=== PATIENT | male | born 1980 | race African-American/Black ===

== ENCOUNTER 2016-07-25 21:14 | Emergency (ER) | payer MEDICAID ==
[~2016-07-25] VITALS: Ht 177.8 cm; Wt 77.0 kg
[2016-07-26] MEDS ORDERED: KETOROLAC 60MG/2ML VIAL IM ONE (00:15)
[2016-07-26] MEDS ORDERED: ONDANSETRON 4MG ODT PO ONE (00:15)
[2016-07-26 01:07] LABS: CLARITY URINE CLEAR (CLEAR); COLOR URINE YELLOW (YELLOW); GLUCOSE URINE NEGATIVE (NEGATIVE); KETONES URINE NEGATIVE (NEGATIVE); LEUKOCYTE ESTERASE URINE NEGATIVE (NEGATIVE); NITRITE URINE NEGATIVE (NEGATIVE); OCCULT BLOOD URINE NEGATIVE (NEGATIVE); PH URINE 5.5 (4.5-8.0); PROTEIN URINE NEGATIVE (NEGATIVE); SPECIFIC GRAVITY URINE 1.023 (1.005-1.030); UROBILINOGEN URINE 0.2 E.U./dL (0.2-1.0)
[2016-07-26] MEDS ORDERED: ONDANSETRON HCL 4MG TABLET PO ONE (01:30)
[2016-07-26 02:12] LABS: BASOPHILS % 2.6 % (0.0-2.0); EOSINOPHILS % 0.6 % (0.0-5.0); HEMATOCRIT. 38.1 % (42.0-52.0); HEMOGLOBIN. 12.7 g/dL (14.0-18.0); LYMPHOCYTES % 22.5 % (20.0-50.0); MEAN CORPUSCULAR HEMOGLOBIN 31.4 pg (28.0-32.0); MEAN CORPUSCULAR VOLUME 93.8 fL (80.0-94.0); MONOCYTES % 5.5 % (2.0-8.0); NEUTROPHILS % 68.8 % (40.0-76.0); PLATELET 142 x1000/uL (130-400); RED BLOOD CELL COUNT 4.06 mill/uL (4.7-6.1)
[2016-07-26 02:28] LABS: CARBON DIOXIDE 33 mEq/L (21-32); CHLORIDE 103 mEq/L (98-107); ETHANOL BLOOD < 10 mg/dL
[2016-07-26 02:45] VITALS: BP 139/81
[2016-07-26 10:16] LABS: *AMPHETAMINES SCREEN URINE NEGATIVE (NEGATIVE); *BARBITURATES SCREEN URINE NEGATIVE (NEGATIVE); *BENZODIAZEPINES SCREEN URINE NEGATIVE (NEGATIVE); *COCAINE SCREEN URINE NEGATIVE (NEGATIVE); CANNABINOID URINE SCREEN NEGATIVE (NEGATIVE); METHADONE URINE SCREEN NEGATIVE (NEGATIVE); OPIATES URINE SCREEN NEGATIVE (NEGATIVE); PHENCYCLIDINE URINE SCREEN NEGATIVE (NEGATIVE)
== END 2016-07-26 03:58 | disposition home or self-care (01) ==
LOC: ER 21:24
DX: R10.13 Epigastric pain (principal); Z87.11 Personal history of peptic ulcer disease; Z88.1 Allergy status to other antibiotic agents
CPT/HCPCS: 36415; 76770; 80053; 80305; 81003; 83690; 85025; 96372; 99285; G0482; J1885; Q0162

== ENCOUNTER 2017-07-26 12:36 | Emergency (ER) | payer MEDICAID ==
[~2017-07-26] VITALS: Ht 165.1 cm; Wt 73.0 kg
[2017-07-26] MEDS ORDERED: KETOROLAC 30MG/ML VIAL IV STA (15:28)
[2017-07-26] MEDS ORDERED: SODIUM CHLORIDE 0.9% 1,000 ML IV ONE (15:28)
[2017-07-26] MEDS ORDERED: ONDANSETRON HCL 4MG/2ML VIAL IV STA (15:28)
[2017-07-26 16:01] LABS: BASOPHILS % 1.1 % (0.0-2.0); EOSINOPHILS % 0.1 % (0.0-5.0); HEMATOCRIT. 41.6 % (42.0-52.0); HEMOGLOBIN. 14.2 g/dL (14.0-18.0); LYMPHOCYTES % 15.7 % (20.0-50.0); MEAN CORPUSCULAR VOLUME 93.4 fL (80.0-94.0); MEAN PLATELET VOLUME 8.4 fl (7.4-10.4); MONOCYTES % 6.2 % (2.0-8.0); NEUTROPHILS % 76.9 % (40.0-76.0); PLATELET 142 x1000/uL (130-400); RED BLOOD CELL COUNT 4.45 mill/uL (4.7-6.1); RED CELL DISTRIBUTION WIDTH 14.1 % (11.6-14.6)
[2017-07-26 16:05] LABS: CHLORIDE 103 mEq/L (98-107)
[2017-07-26 16:10] LABS: ETHANOL BLOOD < 10 mg/dL
[2017-07-26] MEDS ORDERED: LORAZEPAM 2MG/ML CPJ IV ONE (18:15)
[2017-07-26] MEDS ORDERED: ONDANSETRON HCL 4MG/2ML VIAL IV ONE (18:15)
[2017-07-26] MEDS ORDERED: CHLORDIAZEPOXIDE 25MG CAPSULE PO ONE (18:45)
[2017-07-26 21:00] VITALS: BP 136/62
== END 2017-07-26 21:35 | disposition home or self-care (01) ==
LOC: ER 13:32
DX: R10.32 Left lower quadrant pain (principal); E11.9 Type 2 diabetes mellitus without complications; I10 Essential (primary) hypertension; F12.10 Cannabis abuse, uncomplicated; F17.210 Nicotine dependence, cigarettes, uncomplicated
CPT/HCPCS: 36415; 74176; 80053; 83690; 85025; 96361; 96374; 96375; 96376; 99285; G0482; J1885; J2060; J2405; J7030; Z7610

== ENCOUNTER 2017-08-23 19:11 | Emergency (ER) | payer MEDICAID ==
[~2017-08-23] VITALS: Ht 177.8 cm; Wt 73.0 kg
[2017-08-23] MEDS ORDERED: VISCOUS LIDOCAINE 2% 15 ML UDC MM ONE (22:45)
[2017-08-23] MEDS ORDERED: FAMOTIDINE 20MG TABLET PO ONE (22:45)
[2017-08-23 22:55] LABS: BASOPHILS % 0.7 % (0.0-2.0); EOSINOPHILS % 0.5 % (0.0-5.0); HEMATOCRIT. 37.7 % (42.0-52.0); HEMOGLOBIN. 12.7 g/dL (14.0-18.0); LYMPHOCYTES % 18.4 % (20.0-50.0); MEAN CORPUSCULAR HEMOGLOBIN 31.9 pg (28.0-32.0); MEAN CORPUSCULAR VOLUME 94.8 fL (80.0-94.0); MEAN PLATELET VOLUME 8.1 fl (7.4-10.4); MONOCYTES % 11.2 % (2.0-8.0); NEUTROPHILS % 69.2 % (40.0-76.0); PLATELET 167 x1000/uL (130-400); RED BLOOD CELL COUNT 3.98 mill/uL (4.7-6.1); RED CELL DISTRIBUTION WIDTH 14.2 % (11.6-14.6)
[2017-08-24 02:16] VITALS: BP 145/85
== END 2017-08-24 02:20 | disposition home or self-care (01) ==
LOC: ER 19:42
DX: K29.20 Alcoholic gastritis without bleeding (principal); F10.20 Alcohol dependence, uncomplicated; E11.9 Type 2 diabetes mellitus without complications; I10 Essential (primary) hypertension; F17.200 Nicotine dependence, unspecified, uncomplicated; Z88.1 Allergy status to other antibiotic agents; Y90.9 Presence of alcohol in blood, level not specified
CPT/HCPCS: 36415; 83690; 85025; 93005; 99285

== ENCOUNTER 2018-01-25 12:25 | Emergency (ER) | payer MEDICAID ==
[~2018-01-25] VITALS: Ht 170.2 cm; Wt 69.0 kg
[2018-01-25] MEDS ORDERED: ACETAMINOPHEN 325MG TABLET PO STA (14:56)
[2018-01-25] MEDS ORDERED: ONDANSETRON HCL 4MG/2ML INJ IV STA (14:56)
[2018-01-25] MEDS ORDERED: MAGNESIUM/ALUMINUM HYDROXIDE/SIMETHICONE 30ML UDC PO STA (14:56)
[2018-01-25 14:59] LABS: BASOPHILS % 0.6 % (0.0-2.0); EOSINOPHILS % 0.1 % (0.0-5.0); HEMATOCRIT. 42.1 % (42.0-52.0); HEMOGLOBIN. 13.9 g/dL (14.0-18.0); LYMPHOCYTES % 11.7 % (20.0-50.0); MEAN CORPUSCULAR HEMOGLOBIN 31.8 pg (28.0-32.0); MEAN CORPUSCULAR VOLUME 96.3 fL (80.0-94.0); MEAN PLATELET VOLUME 8.6 fl (7.4-10.4); MONOCYTES % 2.6 % (2.0-8.0); PLATELET 196 x1000/uL (130-400); RED BLOOD CELL COUNT 4.37 mill/uL (4.7-6.1); RED CELL DISTRIBUTION WIDTH 13.6 % (11.6-14.6)
[2018-01-25 15:06] LABS: CHLORIDE 102 mEq/L (98-107)
[2018-01-25 15:59] VITALS: BP 122/69
== END 2018-01-25 16:12 | disposition home or self-care (01) ==
LOC: ER 12:25
DX: R10.9 Unspecified abdominal pain (principal); R11.2 Nausea with vomiting, unspecified; I10 Essential (primary) hypertension; E11.9 Type 2 diabetes mellitus without complications; F12.10 Cannabis abuse, uncomplicated; Z88.1 Allergy status to other antibiotic agents
CPT/HCPCS: 36415; 80053; 83690; 85025; 96374; 99283; J2405

== ENCOUNTER 2018-02-07 19:45 | Emergency (ER) | payer MEDICAID ==
[~2018-02-07] VITALS: Ht 180.3 cm; Wt 82.0 kg
[2018-02-07] MEDS ORDERED: SODIUM CHLORIDE 0.9% 1,000 ML IV ONE (20:27)
[2018-02-07] MEDS ORDERED: ONDANSETRON HCL 4MG/2ML INJ IV STA (20:27)
[2018-02-07 21:27] LABS: CHLORIDE 109 mEq/L (98-107); CLARITY URINE CLEAR (CLEAR); COLOR URINE YELLOW (YELLOW); KETONES URINE NEGATIVE (NEGATIVE); LEUKOCYTE ESTERASE URINE NEGATIVE (NEGATIVE); NITRITE URINE NEGATIVE (NEGATIVE); OCCULT BLOOD URINE NEGATIVE (NEGATIVE); PROTEIN URINE NEGATIVE (NEGATIVE); SPECIFIC GRAVITY URINE 1.007 (1.005-1.030); UROBILINOGEN URINE 0.2 E.U./dL (0.2-1.0)
[2018-02-07 21:28] LABS: BASOPHILS % 0.8 % (0.0-2.0); EOSINOPHILS % 2.6 % (0.0-5.0); HEMATOCRIT. 40.6 % (42.0-52.0); HEMOGLOBIN. 13.4 g/dL (14.0-18.0); LYMPHOCYTES % 41.7 % (20.0-50.0); MEAN CORPUSCULAR HEMOGLOBIN 31.6 pg (28.0-32.0); MEAN PLATELET VOLUME 8.2 fl (7.4-10.4); MONOCYTES % 5.9 % (2.0-8.0); PLATELET 202 x1000/uL (130-400); RED BLOOD CELL COUNT 4.23 mill/uL (4.7-6.1); RED CELL DISTRIBUTION WIDTH 13.6 % (11.6-14.6)
[2018-02-07 21:33] LABS: ETHANOL BLOOD 243 mg/dL
[2018-02-07 21:36] LABS: *AMPHETAMINES SCREEN URINE NEGATIVE (NEGATIVE); *BARBITURATES SCREEN URINE NEGATIVE (NEGATIVE); *BENZODIAZEPINES SCREEN URINE NEGATIVE (NEGATIVE); *COCAINE SCREEN URINE NEGATIVE (NEGATIVE); CANNABINOID URINE SCREEN PRESUMTIVE POSITIVE (NEGATIVE); METHADONE URINE SCREEN NEGATIVE (NEGATIVE); PHENCYCLIDINE URINE SCREEN NEGATIVE (NEGATIVE)
[2018-02-07 21:37] LABS: OPIATES URINE SCREEN NEGATIVE (NEGATIVE)
[2018-02-08 04:30] VITALS: BP 122/68
== END 2018-02-08 04:34 | disposition home or self-care (01) ==
LOC: ER 19:45
DX: T40.7X1A Poisoning by cannabis (derivatives), accidental (unintentional), initial encounter (principal); G93.40 Encephalopathy, unspecified; R11.2 Nausea with vomiting, unspecified; F17.200 Nicotine dependence, unspecified, uncomplicated; F32.9 Major depressive disorder, single episode, unspecified; E11.9 Type 2 diabetes mellitus without complications; I10 Essential (primary) hypertension; Z88.1 Allergy status to other antibiotic agents; Y92.89 Other specified places as the place of occurrence of the external cause
CPT/HCPCS: 36415; 70450; 80053; 80305; 81003; 85025; 93005; 96361; 96374; 99284; G0482; J2405; J7030

== ENCOUNTER 2018-02-21 15:21 | Emergency (ER) | payer MEDICAID ==
[~2018-02-21] VITALS: Ht 162.6 cm; Wt 72.7 kg
[2018-02-21] MEDS ORDERED: ACETAMINOPHEN 325MG TABLET PO ONE (16:15)
[2018-02-21 17:07] VITALS: BP 131/87
== END 2018-02-21 17:07 | disposition home or self-care (01) ==
LOC: ER 16:20
DX: K04.7 Periapical abscess without sinus (principal); K00.0 Anodontia; F17.200 Nicotine dependence, unspecified, uncomplicated; E11.9 Type 2 diabetes mellitus without complications; Z88.3 Allergy status to other anti-infective agents
CPT/HCPCS: 99283

== ENCOUNTER 2018-05-21 07:34 | Inpatient (IN) | payer MEDICAID ==
[~2018-05-21] VITALS: Ht 167.6 cm; Wt 72.6 kg
[2018-05-21 10:27] LABS: BASOPHILS % 0.8 % (0.0-2.0); EOSINOPHILS % 0.6 % (0.0-5.0); HEMATOCRIT. 43.5 % (42.0-52.0); HEMOGLOBIN. 14.7 g/dL (14.0-18.0); LYMPHOCYTES % 11.9 % (20.0-50.0); MEAN CORPUSCULAR HEMOGLOBIN 31.7 pg (28.0-32.0); MEAN CORPUSCULAR VOLUME 93.7 fL (80.0-94.0); MEAN PLATELET VOLUME 8.3 fl (7.4-10.4); MONOCYTES % 2.9 % (2.0-8.0); NEUTROPHILS % 83.8 % (40.0-76.0); PLATELET 180 x1000/uL (130-400); RED BLOOD CELL COUNT 4.64 mill/uL (4.7-6.1); RED CELL DISTRIBUTION WIDTH 13.4 % (11.6-14.6)
[2018-05-21] MEDS ORDERED: ONDANSETRON HCL 4MG/2ML INJ IV ONE (10:30)
[2018-05-21 10:32] LABS: CHLORIDE 102 mEq/L (98-107)
[2018-05-21] MEDS ORDERED: DEXT 5%/0.9% NACL 1,000 ML IV ONE (12:15)
[2018-05-21] MEDS ORDERED: ONDANSETRON HCL 4MG/2ML INJ IV PRN (13:15)
[2018-05-21] MEDS ORDERED: DEXTROSE 50% WATER 50ML SYRINGE IV PRN ×2 (13:15)
[2018-05-21] MEDS ORDERED: CLONIDINE 0.1MG TABLET PO PRN (13:15)
[2018-05-21] MEDS ORDERED: MAGNESIUM/ALUMINUM HYDROXIDE/SIMETHICONE 30ML UDC PO PRN (13:15)
[2018-05-21] MEDS ORDERED: ACETAMINOPHEN 325MG TABLET PO PRN (13:15)
[2018-05-21 20:00] VITALS: BP 132/81
[2018-05-21] MEDS ORDERED: ENOXAPARIN 40MG/0.4ML SYR SUBCUT SCH (20:00)
[2018-05-21 21:00] VITALS: BP 132/87
[2018-05-21] MEDS: BLOOD SUGAR DIAGNOSTIC STRIP TEST SCH (21:07)
[2018-05-21] MEDS ORDERED: DIPHENHYDRAMINE 25MG CAPSULE PO PRN (21:45)
[2018-05-22] VITALS: BP 121/70
[2018-05-22 04:00] VITALS: BP 130/73
[2018-05-22] MEDS: BLOOD SUGAR DIAGNOSTIC STRIP TEST SCH ×2 (06:24→12:48)
[2018-05-22 07:02] LABS: BASOPHILS % 0.6 % (0.0-2.0); EOSINOPHILS % 1.3 % (0.0-5.0); HEMATOCRIT. 42.9 % (42.0-52.0); HEMOGLOBIN. 14.5 g/dL (14.0-18.0); LYMPHOCYTES % 24.1 % (20.0-50.0); MEAN CORPUSCULAR HEMOGLOBIN 31.8 pg (28.0-32.0); MEAN CORPUSCULAR VOLUME 93.7 fL (80.0-94.0); MEAN PLATELET VOLUME 8.7 fl (7.4-10.4); MONOCYTES % 9.4 % (2.0-8.0); NEUTROPHILS % 64.6 % (40.0-76.0); PLATELET 182 x1000/uL (130-400); RED BLOOD CELL COUNT 4.57 mill/uL (4.7-6.1); RED CELL DISTRIBUTION WIDTH 12.8 % (11.6-14.6)
[2018-05-22 07:13] LABS: CHLORIDE 99 mEq/L (98-107)
[2018-05-22 08:00] VITALS: BP 122/85
[2018-05-22] MEDS ORDERED: PROPOFOL 200MG/20ML VIAL IV ONE (11:27)
[2018-05-22] MEDS ORDERED: FENTANYL CITRATE/PF 50MCG/ML 2ML VIAL ONE (11:27)
[2018-05-22] MEDS ORDERED: MIDAZOLAM HCL 2 MG/2 ML VIAL ONE (11:27)
[2018-05-22 11:49] VITALS: BP 122/77
[2018-05-22 12:00] VITALS: BP 125/78
[2018-05-22 12:19] LABS: AMYLASE 27 IU/L (25-115)
== END 2018-05-22 15:35 | disposition home or self-care (01) | DRG 420 ==
LOC: ER 07:34 → 8WST 12:15 → ENRESERV 15:20
PROVIDERS: ADMIT Family Medicine Adult Medicine; ATTEND Family Medicine Adult Medicine
DX: E11.649 Type 2 diabetes mellitus with hypoglycemia without coma (principal); I48.91 Unspecified atrial fibrillation; F10.10 Alcohol abuse, uncomplicated
CPT/HCPCS: 36415; 80048; 80076; 82150; 82962; 83036; 84681; 93970; 96374; 99291; J1650; J2250; J2405; J2704; J3010; J7042; Q0163

== ENCOUNTER 2018-11-23 05:37 | Emergency (ER) | payer MEDICAID ==
[~2018-11-23] VITALS: Ht 172.7 cm; Wt 68.0 kg
[2018-11-23] MEDS ORDERED: ONDANSETRON 4MG ODT PO ONE (09:00)
[2018-11-23] MEDS ORDERED: HYDROCODONE/ACETAMINOPHEN 5/325MG TABLET PO ONE (09:00)
[2018-11-23] MEDS ORDERED: METOCLOPRAMIDE HCL 10MG TABLET PO ONE (12:30)
[2018-11-23] MEDS ORDERED: MECLIZINE 25MG TABLET PO ONE (12:30)
[2018-11-23 14:31] VITALS: BP 130/65
== END 2018-11-23 14:37 | disposition home or self-care (01) ==
LOC: ER 05:37
DX: R42 Dizziness and giddiness (principal); R11.2 Nausea with vomiting, unspecified; R51 Headache; J30.9 Allergic rhinitis, unspecified; J32.9 Chronic sinusitis, unspecified; I48.91 Unspecified atrial fibrillation; E11.9 Type 2 diabetes mellitus without complications; Z88.1 Allergy status to other antibiotic agents
CPT/HCPCS: 70450; 99284; J8597; Q0162

== ENCOUNTER 2019-05-28 10:59 | Inpatient (IN) | payer MEDICAID ==
[~2019-05-28] VITALS: Ht 167.6 cm; Wt 66.2 kg
[2019-05-28] MEDS ORDERED: SODIUM CHLORIDE 0.9% 1,000 ML IV ONE (11:18)
[2019-05-28] MEDS ORDERED: METRONIDAZOLE 500 MG PREMIX 100 ML IV ONE (11:30)
[2019-05-28] MEDS ORDERED: LEVOFLOXACIN 750MG PREMIX 150 ML IV ONE (11:30)
[2019-05-28 12:03] LABS: CLARITY URINE CLEAR (CLEAR); COLOR URINE YELLOW (YELLOW); KETONES URINE 1+ (NEGATIVE); LEUKOCYTE ESTERASE URINE NEGATIVE (NEGATIVE); NITRITE URINE NEGATIVE (NEGATIVE); OCCULT BLOOD URINE NEGATIVE (NEGATIVE); PROTEIN URINE NEGATIVE (NEGATIVE); SPECIFIC GRAVITY URINE 1.024 (1.005-1.030); UROBILINOGEN URINE 0.2 E.U./dL (0.2-1.0)
[2019-05-28 12:58] LABS: HEMATOCRIT. 41.3 % (42.0-52.0); HEMOGLOBIN. 13.8 g/dL (14.0-18.0); MEAN CORPUSCULAR HEMOGLOBIN 31.4 pg (28.0-32.0); MEAN CORPUSCULAR VOLUME 93.8 fL (80.0-94.0); MEAN PLATELET VOLUME 8.3 fl (7.4-10.4); PLATELET 193 x1000/uL (130-400); RED CELL DISTRIBUTION WIDTH 13.3 % (11.6-14.6)
[2019-05-28 13:01] LABS: CHLORIDE 104 mEq/L (98-107)
[2019-05-28 13:02] LABS: PARTIAL THROMBOPLASTIN TIME 27.8 sec (23.4-31.0); PROTHROMBIN TIME 10.7 sec (9.6-11.0)
[2019-05-28 13:17] LABS: PLATELET ESTIMATE NORMAL
[2019-05-28] MEDS ORDERED: IPRATROPIUM/ALBUTEROL 0.5-3(2.5)MG/3ML NEB NEB PRN (16:15)
[2019-05-28] MEDS ORDERED: MORPHINE SULFATE 2 MG/ML CPJ (NOT FOR IM USE) IV PRN (16:15)
[2019-05-28] MEDS ORDERED: GUAIFENESIN 200MG/10ML SUGAR FREE UDC PO PRN (16:15)
[2019-05-28] MEDS ORDERED: NA PHOS,M-B/NA PHOS,DI-BA ENEMA 118ML PR PRN (16:15)
[2019-05-28] MEDS ORDERED: MAGNESIUM/ALUMINUM HYDROXIDE/SIMETHICONE 30ML UDC PO PRN (16:15)
[2019-05-28] MEDS ORDERED: DEXTROSE 50% WATER 50ML SYRINGE IV PRN (16:15)
[2019-05-28] MEDS ORDERED: LORAZEPAM 2MG/ML CPJ IV PRN ×2 (16:15→16:30)
[2019-05-28] MEDS ORDERED: HYDROCODONE/ACETAMINOPHEN 10/325MG TABLET PO PRN (16:15)
[2019-05-28] MEDS ORDERED: CLONIDINE 0.1MG TABLET PO PRN (16:15)
[2019-05-28] MEDS ORDERED: HYDRALAZINE 20MG/ML VIAL IV PRN (16:15)
[2019-05-28] MEDS ORDERED: DOCUSATE SODIUM 100MG CAPSULE PO PRN (16:15)
[2019-05-28] MEDS ORDERED: DIPHENHYDRAMINE 50MG/ML VIAL IV PRN (16:15)
[2019-05-28] MEDS ORDERED: ACETAMINOPHEN 325MG TABLET PO PRN (16:15)
[2019-05-28 17:00] VITALS: BP 140/84
[2019-05-28] MEDS ORDERED: ENOXAPARIN 40MG/0.4ML SYR SUBCUT SCH (17:00)
[2019-05-28] MEDS: BLOOD SUGAR DIAGNOSTIC STRIP TEST SCH ×2 (17:00→21:00)
[2019-05-28] MEDS: INSULIN LISPRO 100 UNITS/ML SUBCUT SCH ×2 (17:15→21:00)
[2019-05-28] MEDS: ONDANSETRON HCL 4MG/2ML INJ IV PRN ×2 (17:33→22:19)
[2019-05-28] MEDS: SODIUM CHLORIDE 0.45% 1,000 ML IV SCH (18:07)
[2019-05-28] MEDS: MVI, ADULT NO.1 10 ML, FOLIC ACID 1 MG, THIAMINE HCL 100 MG in SODIUM CHLORIDE 0.9% 1,0... IV NR ×8 (18:30→22:27)
[2019-05-28 20:00] VITALS: BP 124/79
[2019-05-28] MEDS: SODIUM CHLORIDE 0.9% INJ 3ML FLUSH IVF SCH (22:19)
[2019-05-28 22:36] LABS: CREATINE KINASE 218 IU/L (39-308); CREATINE KINASE MB FRACTION < 1.0 ng/mL (0.5-3.6)
[2019-05-29] VITALS: BP 129/84
[2019-05-29 04:00] VITALS: BP 124/78
[2019-05-29] MEDS: SODIUM CHLORIDE 0.9% INJ 3ML FLUSH IVF SCH ×2 (06:32→14:00)
[2019-05-29] MEDS: SODIUM CHLORIDE 0.45% 1,000 ML IV SCH (06:33)
[2019-05-29] MEDS: BLOOD SUGAR DIAGNOSTIC STRIP TEST SCH ×2 (06:44→12:29)
[2019-05-29] MEDS: INSULIN LISPRO 100 UNITS/ML SUBCUT SCH ×2 (07:15→12:15)
[2019-05-29 08:00] VITALS: BP 114/72
[2019-05-29] MEDS ORDERED: MULTIVITAMINS,THER W-MINERALS TABLET PO SCH (09:00)
[2019-05-29] MEDS ORDERED: THIAMINE HCL 100MG TABLET PO SCH (09:00)
[2019-05-29] MEDS ORDERED: FOLIC ACID 1MG TABLET PO SCH (09:00)
[2019-05-29 09:13] LABS: HEMATOCRIT. 39.4 % (42.0-52.0); HEMOGLOBIN. 13.2 g/dL (14.0-18.0); MEAN CORPUSCULAR HEMOGLOBIN 31.2 pg (28.0-32.0); MEAN CORPUSCULAR VOLUME 93.2 fL (80.0-94.0); MEAN PLATELET VOLUME 8.2 fl (7.4-10.4); PLATELET 189 x1000/uL (130-400); RED BLOOD CELL COUNT 4.23 mill/uL (4.7-6.1); RED CELL DISTRIBUTION WIDTH 13.1 % (11.6-14.6)
[2019-05-29 09:19] LABS: CHLORIDE 105 mEq/L (98-107)
[2019-05-29 09:27] LABS: T4 FREE 1.02 ng/dL (0.76-1.46)
[2019-05-29 09:29] LABS: CREATINE KINASE 159 IU/L (39-308)
[2019-05-29 09:31] LABS: CREATINE KINASE MB FRACTION < 1.0 ng/mL (0.5-3.6)
[2019-05-29] MEDS ORDERED: LEVOFLOXACIN 500MG PREMIX 100 ML IV SCH (11:00)
[2019-05-29] MEDS ORDERED: ASPIRIN 81MG TABLET PO SCH (11:30)
[2019-05-29 12:00] VITALS: BP_SYST 125; BP_SYST 127; BP_SYST 137; BP_DIAS 69; BP_DIAS 80
[2019-05-29 13:39] LABS: *AMPHETAMINES SCREEN URINE NEGATIVE (NEGATIVE); *BARBITURATES SCREEN URINE NEGATIVE (NEGATIVE); *BENZODIAZEPINES SCREEN URINE NEGATIVE (NEGATIVE); *COCAINE SCREEN URINE NEGATIVE (NEGATIVE); METHADONE URINE SCREEN NEGATIVE (NEGATIVE); OPIATES URINE SCREEN NEGATIVE (NEGATIVE)
[2019-05-29 13:41] LABS: CANNABINOID URINE SCREEN PRESUMTIVE POSITIVE (NEGATIVE); PHENCYCLIDINE URINE SCREEN NEGATIVE (NEGATIVE)
[2019-05-29 20:06] LABS: PLATELET ESTIMATE NORMAL
[2019-05-29] MEDS ORDERED: PANTOPRAZOLE SODIUM 40 MG/VIAL IV SCH (21:00)
== END 2019-05-29 14:30 | disposition left against medical advice (07) | DRG 420 ==
LOC: ER 10:59 → 5WST 14:46 → ENRESERV 15:26
PROVIDERS: ADMIT Internal Medicine; ATTEND Internal Medicine
DX: E11.649 Type 2 diabetes mellitus with hypoglycemia without coma (principal); E87.2 Acidosis; I48.20 Chronic atrial fibrillation, unspecified; R13.10 Dysphagia, unspecified; R55 Syncope and collapse; D64.9 Anemia, unspecified; F10.129 Alcohol abuse with intoxication, unspecified; F12.10 Cannabis abuse, uncomplicated; R29.6 Repeated falls; K92.1 Melena; Z53.29 Procedure and treatment not carried out because of patient's decision for other reasons; Z72.0 Tobacco use; Z88.1 Allergy status to other antibiotic agents; Z82.49 Family history of ischemic heart disease and other diseases of the circulatory system
CPT/HCPCS: 36415; 71045; 80053; 80305; 81003; 82550; 82553; 82962; 83605; 84145; 84439; 84443; 84484; 85025; 93005; 93306; 93880; 99291; J1650; J1956; J2405; J3411; J3490; J7030

== ENCOUNTER 2021-07-30 18:25 | Inpatient (IN) | payer MEDICAID ==
[~2021-07-30] VITALS: Ht 165.1 cm; Wt 57.7 kg
[~2021-07-30 18:25] MED LIST: CIPR500S3 PO
[2021-07-30] MEDS ORDERED: MAGNESIUM/ALUMINUM HYDROXIDE/SIMETHICONE 30ML UDC PO STA (20:39)
[2021-07-30] MEDS ORDERED: MORPHINE SULFATE 4 MG/ML CPJ (NOT FOR IM USE) IV STA (20:39)
[2021-07-30] MEDS ORDERED: ONDANSETRON HCL 4MG/2ML INJ IV STA (20:39)
[2021-07-30] MEDS ORDERED: FAMOTIDINE 20MG/2ML VIAL IV STA (20:39)
[2021-07-30] MEDS ORDERED: VISCOUS LIDOCAINE 2% 15 ML UDC PO STA (20:39)
[2021-07-30] MEDS ORDERED: DICYCLOMINE 10 MG/5 ML ORAL SYR PO STA (20:39)
[2021-07-30 21:30] LABS: CHLORIDE 100 mEq/L (98-107)
[2021-07-30 21:34] LABS: CLARITY URINE CLEAR (CLEAR); COLOR URINE DARK YELLOW (YELLOW); KETONES URINE 2+ (NEGATIVE); LEUKOCYTE ESTERASE URINE TRACE (NEGATIVE); NITRITE URINE NEGATIVE (NEGATIVE); OCCULT BLOOD URINE NEGATIVE (NEGATIVE); PROTEIN URINE 2+ (NEGATIVE); SPECIFIC GRAVITY URINE 1.036 (1.005-1.030)
[2021-07-30 21:34] LABS: BASOPHILS % 0.4 % (0.0-2.0); HEMATOCRIT. 41.7 % (42.0-52.0); HEMOGLOBIN. 13.9 g/dL (14.0-18.0); LYMPHOCYTES % 14.9 % (20.0-50.0); MEAN CORPUSCULAR VOLUME 95.9 fL (80.0-94.0); MEAN PLATELET VOLUME 8.7 fl (7.4-10.4); MONOCYTES % 8.6 % (2.0-8.0); NEUTROPHILS % 71.1 % (40.0-76.0); PLATELET 179 x1000/uL (130-400); RED BLOOD CELL COUNT 4.35 mill/uL (4.7-6.1); RED CELL DISTRIBUTION WIDTH 13.1 % (11.6-14.6)
[2021-07-31 02:41] VITALS: BP 128/83
[2021-07-31] MEDS ORDERED: MORPHINE SULFATE 2 MG/ML CPJ (NOT FOR IM USE) IV PRN (04:00)
[2021-07-31 04:28] VITALS: BP 118/73
[2021-07-31] MEDS ORDERED: ONDA8TAB13 PO (05:42)
[2021-07-31] MEDS ORDERED: ONDANSETRON HCL 4MG/2ML INJ IV PRN (07:30)
[2021-07-31] MEDS ORDERED: CEFTRIAXONE 1 G PREMIX 50 ML IV SCH (07:30)
[2021-07-31] MEDS ORDERED: FOLIC ACID 1 MG, THIAMINE HCL 100 MG, MVI, ADULT NO.1 10 ML in DEXTROSE 5% WATER 1,000 ML IV ONE ×4 (08:30)
[2021-07-31] MEDS ORDERED: PANTOPRAZOLE SODIUM 40 MG/VIAL IV SCH (09:00)
[2021-07-31] MEDS: DEXT 5%/0.9% NACL KCL 20MEQ/L 1,000 ML IV SCH ×2 (09:06→17:00)
[2021-07-31] MEDS ORDERED: LEVOFLOXACIN 500MG PREMIX 100 ML IV SCH (11:00)
[2021-07-31] MEDS ORDERED: HYDROCODONE/ACETAMINOPHEN 5/325MG TABLET PO PRN (12:00)
[2021-07-31] MEDS ORDERED: NALOXONE HCL 0.4MG/ML VIAL IV PRN (12:15)
[2021-07-31 12:21] LABS: BASOPHILS % 0.9 % (0.0-2.0); EOSINOPHILS % 7.8 % (0.0-5.0); HEMATOCRIT. 36.5 % (42.0-52.0); HEMOGLOBIN. 12.2 g/dL (14.0-18.0); LYMPHOCYTES % 22.9 % (20.0-50.0); MEAN CORPUSCULAR VOLUME 95.4 fL (80.0-94.0); MEAN PLATELET VOLUME 8.6 fl (7.4-10.4); MONOCYTES % 10.3 % (2.0-8.0); NEUTROPHILS % 58.1 % (40.0-76.0); PLATELET 179 x1000/uL (130-400); RED BLOOD CELL COUNT 3.82 mill/uL (4.7-6.1); RED CELL DISTRIBUTION WIDTH 12.7 % (11.6-14.6)
[2021-07-31 13:05] LABS: CHLORIDE 102 mEq/L (98-107)
[2021-07-31 13:15] LABS: HDL CHOLESTEROL 68 mg/dL (40-59); LDL CHOLESTEROL 52 mg/dL (5-100)
[2021-07-31 20:38] VITALS: BP 98/61
== END 2021-07-31 21:07 | disposition home or self-care (01) | DRG 282 ==
LOC: ER 18:40 → 6EST 07-31 00:26 → ENRESERV 07-31 02:02
PROVIDERS: ADMIT Internal Medicine; ATTEND Internal Medicine
DX: K85.90 Acute pancreatitis without necrosis or infection, unspecified (principal); E11.9 Type 2 diabetes mellitus without complications; F10.10 Alcohol abuse, uncomplicated; Y90.9 Presence of alcohol in blood, level not specified; F12.11 Cannabis abuse, in remission; E87.6 Hypokalemia; I48.91 Unspecified atrial fibrillation; Z88.1 Allergy status to other antibiotic agents; R63.6 Underweight; Z68.21 Body mass index [BMI] 21.0-21.9, adult; Z71.41 Alcohol abuse counseling and surveillance of alcoholic
CPT/HCPCS: 36415; 76700; 80048; 80053; 80061; 80076; 81003; 82962; 85025; 93005; 99285; C9113; J1956; J2270; J2405; J3411; J3490; J7070

== ENCOUNTER 2022-11-06 09:43 | Emergency (ER) | payer MEDICAID ==
[~2022-11-06] VITALS: Ht 165.1 cm; Wt 68.0 kg
[~2022-11-06 09:43] MED LIST changes: +ONDA8TAB13 PO
[2022-11-06 09:51] VITALS: O2SAT 99
[2022-11-06] MEDS ORDERED: ONDANSETRON 4MG ODT PO STA (10:20)
[2022-11-06 10:53] LABS: CHLORIDE 102 mEq/L (98-107); INDEX HEMOLYSI 1 (1-3); INDEX ICTERIC 1 (1-4); INDEX LIPEMIC 1 (1-3); SODIUM 133 mEq/L (136-145)
[2022-11-06 10:54] LABS: BASOPHILS % 0.6 % (0.0-2.0); EOSINOPHILS % 5.8 % (0.0-5.0); HEMATOCRIT. 38.8 % (42.0-52.0); HEMOGLOBIN. 12.8 g/dL (14.0-18.0); LYMPHOCYTES % 17.8 % (20.0-50.0); MEAN CORPUSCULAR HEMOGLOBIN 31.7 pg (28.0-32.0); MEAN CORPUSCULAR VOLUME 96.1 fL (80.0-94.0); MEAN PLATELET VOLUME 7.9 fl (7.4-10.4); MONOCYTES % 8.3 % (2.0-8.0); NEUTROPHILS % 67.5 % (40.0-76.0); PLATELET 287 x1000/uL (130-400); RED BLOOD CELL COUNT 4.04 mill/uL (4.7-6.1); RED CELL DISTRIBUTION WIDTH 12.9 % (11.6-14.6); WHITE BLOOD COUNT 6.7 x1000/uL (4.5-11.0)
[2022-11-06 11:02] LABS: ALANINE AMINOTRANSFERASE 16 IU/L (13-61); ALBUMIN 3.6 g/dL (3.4-5.0); ASPARTATE AMINOTRANSFERASE 17 IU/L (15-37); BILIRUBIN TOTAL 0.6 mg/dL (0.1-1.0); CALCIUM 8.9 mg/dL (8.5-10.1); CARBON DIOXIDE 30 mEq/L (21-32); CREATININE 0.9 mg/dL (0.6-1.3); GLUCOSE 89 mg/dL (70-105); PROTEIN TOTAL 8.2 g/dL (6.0-8.3); UREA NITROGEN BLOOD 9 mg/dL (7-21)
[2022-11-06] MEDS ORDERED: MAGNESIUM/ALUMINUM HYDROXIDE/SIMETHICONE 30ML UDC PO ONE (11:15)
[2022-11-06] MEDS ORDERED: SODIUM CHLORIDE 0.9% 1,000 ML IV ONE (13:30)
[2022-11-06] MEDS ORDERED: MORPHINE SULFATE 4 MG/ML CPJ (NOT FOR IM USE) IV ONE (13:30)
[2022-11-06 14:50] LABS: CLARITY URINE CLOUDY (CLEAR); COLOR URINE DARK YELLOW (YELLOW); GLUCOSE URINE NEGATIVE (NEGATIVE); KETONES URINE 1+ (NEGATIVE); LEUKOCYTE ESTERASE URINE TRACE (NEGATIVE); NITRITE URINE NEGATIVE (NEGATIVE); OCCULT BLOOD URINE NEGATIVE (NEGATIVE); PH URINE 5.5 (4.5-8.0); PROTEIN URINE 1+ (NEGATIVE); SPECIFIC GRAVITY URINE 1.038 (1.005-1.030)
[2022-11-06 14:55] LABS: SQUAMOUS EPITHELIAL CELL URINE NONE SEEN /lpf (RARE/1+); YEAST URINE NONE SEEN
[2022-11-06 15:11] LABS: BACTERIA URINE RARE; CALCIUM OXALATE CRYSTALS URINE 2+ /lpf; RBC URINE 0-2 /hpf (0-2); WBC URINE 0-2 /hpf (0-2)
[2022-11-06] MEDS ORDERED: PANTOPRAZOLE SODIUM 40 MG/VIAL IV ONE (15:30)
[2022-11-06] MEDS ORDERED: FAMOTIDINE 20MG/2ML VIAL IV ONE (15:30)
[2022-11-06] MEDS ORDERED: MORPHINE SULFATE 4 MG/ML CPJ (NOT FOR IM USE) IV NR (15:45)
[2022-11-06] MEDS ORDERED: FAMOTIDINE 20MG/2ML VIAL IV NR (15:45)
[2022-11-06] MEDS ORDERED: PANTOPRAZOLE SODIUM 40 MG/VIAL IV NR (17:15)
[2022-11-06] MEDS ORDERED: FAMO20TA8 PO (17:26)
[2022-11-06] MEDS ORDERED: MULT-1279 PO (17:26)
[2022-11-06 18:12] VITALS: BP 132/80; PULSE 75; RESP 10; TEMP 98.3
== END 2022-11-06 18:38 | disposition left against medical advice (07) ==
LOC: ER 09:43 → CANBEDREQ 11:16 → EDBEDREQTM 14:55 → EDBEDREQ 14:55 → EDBEDREQTM 17:44 → EDBEDREQ 17:44 → CANBEDREQ 18:27 → ER 18:38
DX: K86.1 Other chronic pancreatitis (principal); I48.91 Unspecified atrial fibrillation; E11.9 Type 2 diabetes mellitus without complications; F10.229 Alcohol dependence with intoxication, unspecified; I49.9 Cardiac arrhythmia, unspecified; Y90.0 Blood alcohol level of less than 20 mg/100 ml
CPT/HCPCS: 80053; 81003; 83690; 85025; 36415; 74176; 76705; 96361; 96374; 96375; 99285; Q0162; J3490; C9113; J2270; J7030; Z7610 ×2

== ENCOUNTER 2023-10-14 07:41 | Inpatient (IN) | payer MEDICAID ==
[~2023-10-14] VITALS: Ht 165.1 cm; Wt 70.3 kg
[~2023-10-14 07:41] MED LIST changes: -CIPR500S3 PO; +FAMO20TA8 PO; +MULT-1279 PO; -ONDA8TAB13 PO
[2023-10-14 07:43] VITALS: O2SAT 98
[2023-10-14] MEDS: SODIUM CHLORIDE 0.9% 1,000 ML IV ONE (09:23)
[2023-10-14] MEDS: KETOROLAC 30MG/ML VIAL IV STA (09:23)
[2023-10-14] MEDS: ONDANSETRON HCL 4MG/2ML INJ IV STA (09:24)
[2023-10-14 09:35] LABS: BASOPHILS % 0.7 % (0.0-2.0); HEMATOCRIT. 40.4 % (42.0-52.0); HEMOGLOBIN. 13.2 g/dL (14.0-18.0); LYMPHOCYTES % 20.3 % (20.0-50.0); MEAN CORPUSCULAR HEMOGLOBIN 31.3 pg (28.0-32.0); MEAN CORPUSCULAR HGB CONC 32.8 g/dL (31.0-37.0); MEAN CORPUSCULAR VOLUME 95.4 fL (80.0-94.0); MEAN PLATELET VOLUME 7.4 fl (7.4-10.4); PLATELET 272 x1000/uL (130-400); RED BLOOD CELL COUNT 4.23 mill/uL (4.7-6.1); RED CELL DISTRIBUTION WIDTH 13.6 % (11.6-14.6); WHITE BLOOD COUNT 8.3 x1000/uL (4.5-11.0)
[2023-10-14 09:37] LABS: CHLORIDE 93 mEq/L (98-107); POTASSIUM 3.7 mEq/L (3.5-5.1); SODIUM 127 mEq/L (136-145)
[2023-10-14 09:38] LABS: CALCIUM 9.4 mg/dL (8.7-10.4); CARBON DIOXIDE 29 mEq/L (21-32)
[2023-10-14 09:40] LABS: PROTHROMBIN TIME 11.5 sec (9.6-11.0)
[2023-10-14 09:43] LABS: CREATININE 0.9 mg/dL (0.6-1.3); GLUCOSE 82 mg/dL (70-105); TROPONIN I HIGH SENSITIVITY 6 ng/L (3.0-53); UREA NITROGEN BLOOD 5 mg/dL (9-23)
[2023-10-14 09:45] LABS: ALANINE AMINOTRANSFERASE 11 IU/L (10-49); ALBUMIN 4.7 g/dL (3.2-4.8); ASPARTATE AMINOTRANSFERASE 20 IU/L (<34); BILIRUBIN DIRECT 0.3 mg/dL (<=3.0); BILIRUBIN TOTAL 0.8 mg/dL (0.1-1.0); PROTEIN TOTAL 7.4 g/dL (6.0-8.3)
[2023-10-14 09:57] LABS: ETHANOL BLOOD < 10 mg/dL (<10)
[2023-10-14 10:56] LABS: CLARITY URINE CLEAR (CLEAR); COLOR URINE YELLOW (YELLOW); GLUCOSE URINE NEGATIVE (NEGATIVE); KETONES URINE NEGATIVE (NEGATIVE); LEUKOCYTE ESTERASE URINE NEGATIVE (NEGATIVE); NITRITE URINE NEGATIVE (NEGATIVE); OCCULT BLOOD URINE NEGATIVE (NEGATIVE); PROTEIN URINE NEGATIVE (NEGATIVE); SPECIFIC GRAVITY URINE 1.004 (1.005-1.030); UROBILINOGEN URINE 0.2 E.U./dL (0.2-1.0)
[2023-10-14 11:05] LABS: *AMPHETAMINES SCREEN URINE PRESUMPTIVE POSITIVE (NEGATIVE); *BARBITURATES SCREEN URINE NEGATIVE (NEGATIVE); *BENZODIAZEPINES SCREEN URINE NEGATIVE (NEGATIVE); *COCAINE SCREEN URINE NEGATIVE (NEGATIVE); METHADONE URINE SCREEN NEGATIVE (NEGATIVE)
[2023-10-14 11:06] LABS: CANNABINOID URINE SCREEN PRESUMPTIVE POSITIVE (NEGATIVE); ECSTASY MDMA SCREEN URINE NEGATIVE (NEGATIVE); OPIATES URINE SCREEN NEGATIVE (NEGATIVE); PHENCYCLIDINE URINE SCREEN NEGATIVE (NEGATIVE)
[2023-10-14 12:32] VITALS: BP 126/87; PULSE 68; RESP 19; TEMP 36.44736; O2SAT 100
[2023-10-14] MEDS ORDERED: ACETAMINOPHEN 325MG TABLET PO PRN (13:15)
[2023-10-14] MEDS ORDERED: GUAIFENESIN 200MG/10ML SUGAR FREE UDC PO PRN (13:15)
[2023-10-14] MEDS: SODIUM CHLORIDE 0.9% 500 ML IV ONE (13:15)
[2023-10-14] MEDS ORDERED: IPRATROPIUM/ALBUTEROL 0.5-3(2.5)MG/3ML NEB HHN PRN (13:15)
[2023-10-14 13:26] VITALS: BP 124/81; PULSE 89; RESP 20; TEMP 36.696
[2023-10-14] MEDS ORDERED: HYDRALAZINE 10 MG in SODIUM CHLORIDE 0.9% 49.5 ML IV PRN ×2 (14:00→17:00)
[2023-10-14] MEDS ORDERED: HYDRALAZINE 20MG/ML VIAL IV PRN (14:00)
[2023-10-14] MEDS: THIAMINE HCL 100 MG/1 ML 2ML VIAL IM NR (14:30)
[2023-10-14 16:00] VITALS: BP 121/82; PULSE 87; RESP 18; TEMP 35.94732; O2SAT 98
[2023-10-14] MEDS: ACETAMINOPHEN 325MG TABLET PO PRN (16:16)
[2023-10-14] MEDS: ONDANSETRON HCL 4MG/2ML INJ IV PRN (16:17)
[2023-10-14] MEDS ORDERED: LORAZEPAM 2MG/ML INJ IV PRN (17:15)
[2023-10-14 18:32] LABS: IRON 84 ug/dL (65-175)
[2023-10-14 18:35] LABS: AMYLASE 49 IU/L (30-118); CREATINE KINASE 119 IU/L (46-171); TOTAL IRON BINDING CAPACITY 266 ug/dl (250-425)
[2023-10-14 18:36] LABS: PHOSPHORUS 3.5 mg/dL (2.5-4.9)
[2023-10-14 18:39] LABS: FOLIC ACID (FOLATE) SERUM > 20.00 ng/mL (>5.38)
[2023-10-14 18:40] LABS: VITAMIN B12 SERUM 397 pg/mL (211-911)
[2023-10-14 18:41] LABS: FERRITIN 104 ng/mL (22-322)
[2023-10-14 18:52] LABS: HEPATITIS B SURFACE ANTIGEN NEGATIVE (Negative)
[2023-10-14 19:13] LABS: HEPATITIS A AB IGM NEGATIVE (Negative); HEPATITIS B CORE AB IGM NEGATIVE (Negative)
[2023-10-14 19:14] LABS: HEPATITIS C AB NON REACTIVE (Neg) (Negative)
[2023-10-14 20:00] VITALS: BP 136/88; PULSE 85; RESP 20; TEMP 36.61404; O2SAT 98
[2023-10-14] MEDS: SODIUM CHLORIDE 0.9% 1,000 ML IV SCH (22:25)
[2023-10-15] VITALS: BP 127/78; PULSE 87; RESP 20; TEMP 36.50292; O2SAT 97
[2023-10-15 00:51] LABS: CREATINE KINASE 74 IU/L (46-171)
[2023-10-15 08:00] VITALS: BP 139/82; PULSE 71; RESP 20; TEMP 35.94732; O2SAT 100
[2023-10-15 08:05] LABS: CHLORIDE 99 mEq/L (98-107); POTASSIUM 4.3 mEq/L (3.5-5.1); SODIUM 131 mEq/L (136-145)
[2023-10-15 08:06] LABS: CALCIUM 8.9 mg/dL (8.7-10.4); CARBON DIOXIDE 27 mEq/L (21-32)
[2023-10-15 08:11] LABS: GLUCOSE 75 mg/dL (70-105); TRIGLYCERIDE 99 mg/dL (0-150); UREA NITROGEN BLOOD 7 mg/dL (9-23)
[2023-10-15 08:12] LABS: LDL CHOLESTEROL 67 mg/dL (5-100)
[2023-10-15 08:13] LABS: CHOLESTEROL 139 mg/dL (<200); HDL CHOLESTEROL 57 mg/dL (>55)
[2023-10-15 08:14] LABS: THYROID STIMULATING HORMONE 1.18 uIU/mL (0.55-4.78)
[2023-10-15] MEDS: FOLIC ACID 1MG TABLET PO SCH (08:39)
[2023-10-15] MEDS: MULTIVITAMINS,THER W-MINERALS TABLET PO SCH (08:39)
[2023-10-15] MEDS: PANTOPRAZOLE SODIUM 40 MG/VIAL IV SCH (08:39)
[2023-10-15 09:04] LABS: BASOPHILS % 0.4 % (0.0-2.0); EOSINOPHILS % 7.9 % (0.0-5.0); HEMATOCRIT. 39.1 % (42.0-52.0); HEMOGLOBIN. 13.3 g/dL (14.0-18.0); LYMPHOCYTES % 31.4 % (20.0-50.0); MEAN CORPUSCULAR HEMOGLOBIN 32.4 pg (28.0-32.0); MEAN CORPUSCULAR VOLUME 95.4 fL (80.0-94.0); MEAN PLATELET VOLUME 7.9 fl (7.4-10.4); MONOCYTES % 7.6 % (2.0-8.0); NEUTROPHILS % 52.7 % (40.0-76.0); PLATELET 270 x1000/uL (130-400); RED CELL DISTRIBUTION WIDTH 13.4 % (11.6-14.6); WHITE BLOOD COUNT 4.6 x1000/uL (4.5-11.0)
[2023-10-17] MEDS ORDERED: THIAMINE HCL 100MG TABLET PO SCH (09:00)
== END 2023-10-15 10:40 | disposition left against medical advice (07) | DRG 249 ==
LOC: ER 07:48 → 6EST 11:17 → EDBEDREQTM 11:25 → EDBEDREQSVC 11:25 → EDBEDREQ 11:25
PROVIDERS: ADMIT Internal Medicine; ATTEND Internal Medicine
DX: K52.9 Noninfective gastroenteritis and colitis, unspecified (principal); E87.1 Hypo-osmolality and hyponatremia; E86.0 Dehydration; D53.9 Nutritional anemia, unspecified; E11.9 Type 2 diabetes mellitus without complications; I48.91 Unspecified atrial fibrillation; F10.20 Alcohol dependence, uncomplicated; K86.1 Other chronic pancreatitis; R55 Syncope and collapse; Y90.9 Presence of alcohol in blood, level not specified; F17.210 Nicotine dependence, cigarettes, uncomplicated; F15.10 Other stimulant abuse, uncomplicated; F12.10 Cannabis abuse, uncomplicated; Z53.29 Procedure and treatment not carried out because of patient's decision for other reasons; Z87.11 Personal history of peptic ulcer disease; Z88.1 Allergy status to other antibiotic agents
CPT/HCPCS: 36415; 71045; 74176; 80048; 80061; 80076; 80305; 80320; 81003; 82150; 82550; 82607; 82728; 82746; 82962; 83036; 83540; 83550; 83605; 83735; 84100; 84443; 84484; 85025; 86705; 86709; 87340; 93005; 99285; J1885; J2405; J2470; J3411; J7030; G0480

== ENCOUNTER 2024-01-14 10:21 | Emergency (ER) | payer MEDICAID ==
[~2024-01-14] VITALS: Ht 165.1 cm; Wt 63.0 kg
[2024-01-14 10:35] VITALS: O2SAT 98
[2024-01-14 10:57] VITALS: TEMP 98.8; O2SAT 99
[2024-01-14] MEDS ORDERED: HYDROCODONE/ACETAMINOPHEN 5/325MG TABLET PO STA (11:19)
[2024-01-14] MEDS ORDERED: MAGNESIUM/ALUMINUM HYDROXIDE/SIMETHICONE 30ML UDC PO STA (11:19)
[2024-01-14 11:25] LABS: BASOPHILS % 0.8 % (0.0-2.0); EOSINOPHILS % 6.3 % (0.0-5.0); HEMATOCRIT. 41.7 % (42.0-52.0); HEMOGLOBIN. 13.9 g/dL (14.0-18.0); LYMPHOCYTES % 25.7 % (20.0-50.0); MEAN CORPUSCULAR HEMOGLOBIN 32.9 pg (28.0-32.0); MEAN CORPUSCULAR HGB CONC 33.4 g/dL (31.0-37.0); MEAN CORPUSCULAR VOLUME 98.4 fL (80.0-94.0); MEAN PLATELET VOLUME 7.9 fl (7.4-10.4); MONOCYTES % 7.5 % (2.0-8.0); NEUTROPHILS % 59.7 % (40.0-76.0); PLATELET 265 x1000/uL (130-400); RED BLOOD CELL COUNT 4.24 mill/uL (4.7-6.1); RED CELL DISTRIBUTION WIDTH 13.9 % (11.6-14.6); WHITE BLOOD COUNT 6.8 x1000/uL (4.5-11.0)
[2024-01-14 11:43] LABS: CHLORIDE 103 mEq/L (98-107); POTASSIUM 3.7 mEq/L (3.5-5.1); SODIUM 136 mEq/L (136-145)
[2024-01-14 11:44] LABS: CARBON DIOXIDE 29 mEq/L (21-32)
[2024-01-14 11:45] LABS: CALCIUM 9.8 mg/dL (8.7-10.4)
[2024-01-14 11:49] LABS: GLUCOSE 86 mg/dL (70-105)
[2024-01-14 11:50] LABS: UREA NITROGEN BLOOD 7 mg/dL (9-23)
[2024-01-14 12:18] LABS: ALANINE AMINOTRANSFERASE 9 IU/L (10-49); ALBUMIN 4.3 g/dL (3.2-4.8); ASPARTATE AMINOTRANSFERASE 21 IU/L (<34); BILIRUBIN DIRECT 0.1 mg/dL (<=3.0); BILIRUBIN TOTAL 0.6 mg/dL (0.1-1.0); PROTEIN TOTAL 7.6 g/dL (6.0-8.3)
[2024-01-14 12:20] LABS: CLARITY URINE CLEAR (CLEAR); COLOR URINE DARK YELLOW (YELLOW); GLUCOSE URINE NEGATIVE (NEGATIVE); KETONES URINE 1+ (NEGATIVE); LEUKOCYTE ESTERASE URINE NEGATIVE (NEGATIVE); NITRITE URINE NEGATIVE (NEGATIVE); OCCULT BLOOD URINE NEGATIVE (NEGATIVE); PH URINE 5.5 (4.5-8.0); PROTEIN URINE TRACE (NEGATIVE); SPECIFIC GRAVITY URINE 1.031 (1.005-1.030)
[2024-01-14 12:33] LABS: PARTIAL THROMBOPLASTIN TIME 30.2 sec (23.4-31.0)
[2024-01-14 12:33] LABS: *AMPHETAMINES SCREEN URINE NEGATIVE (NEGATIVE); *BARBITURATES SCREEN URINE NEGATIVE (NEGATIVE); *BENZODIAZEPINES SCREEN URINE NEGATIVE (NEGATIVE); *COCAINE SCREEN URINE NEGATIVE (NEGATIVE); CANNABINOID URINE SCREEN PRESUMPTIVE POSITIVE (NEGATIVE); ECSTASY MDMA SCREEN URINE NEGATIVE (NEGATIVE); METHADONE URINE SCREEN NEGATIVE (NEGATIVE); OPIATES URINE SCREEN NEGATIVE (NEGATIVE); PHENCYCLIDINE URINE SCREEN NEGATIVE (NEGATIVE)
[2024-01-14 12:37] LABS: BACTERIA URINE FEW; RBC URINE NONE SEEN /hpf (0-2); SQUAMOUS EPITHELIAL CELL URINE FEW /lpf (RARE/1+); WBC URINE 0-2 /hpf (0-2); YEAST URINE NONE SEEN
[2024-01-14 13:00] LABS: ETHANOL BLOOD < 10 mg/dL (<10); TROPONIN I HIGH SENSITIVITY < 4 ng/L (3.0-53)
[2024-01-14] MEDS: FAMOTIDINE 20MG TABLET PO SCH (13:01)
[2024-01-14 13:02] VITALS: BP 132/87; PULSE 98; RESP 18
[2024-01-14] MEDS: MAGNESIUM/ALUMINUM HYDROXIDE/SIMETHICONE 30ML UDC PO NR (13:02)
[2024-01-14] MEDS: ONDANSETRON 4MG ODT PO NR (13:02)
[2024-01-14] MEDS: HYDROCODONE/ACETAMINOPHEN 5/325MG TABLET PO NR (13:02)
[2024-01-14] MEDS ORDERED: ONDA-239 PO (13:14)
[2024-01-14] MEDS ORDERED: PROT40 MT (13:14)
[2024-01-14] MEDS ORDERED: MAG-55 MT (13:14)
== END 2024-01-14 14:01 | disposition home or self-care (01) ==
LOC: ER 10:21
DX: K29.20 Alcoholic gastritis without bleeding (principal); K52.9 Noninfective gastroenteritis and colitis, unspecified; Z79.899 Other long term (current) drug therapy; Z88.0 Allergy status to penicillin
CPT/HCPCS: 80076; 80305; 80048; 81003; 80320; 83690; 85025; 85610; 85730; 84484; 36415; 74176; 93005; 99284; Q0162; G0480

== ENCOUNTER 2024-04-08 13:44 | Emergency (ER) | payer MEDICAID ==
[~2024-04-08] VITALS: Ht 165.1 cm; Wt 70.0 kg
[~2024-04-08 13:44] MED LIST changes: +MAG-55 MT; +ONDA-239 PO; +PROT40 MT
[2024-04-08 13:45] VITALS: O2SAT 100
[2024-04-08 14:42] LABS: CLARITY URINE CLEAR (CLEAR); COLOR URINE YELLOW (YELLOW); GLUCOSE URINE NEGATIVE (NEGATIVE); KETONES URINE 1+ (NEGATIVE); LEUKOCYTE ESTERASE URINE NEGATIVE (NEGATIVE); NITRITE URINE NEGATIVE (NEGATIVE); OCCULT BLOOD URINE NEGATIVE (NEGATIVE); PH URINE 6.5 (4.5-8.0); PROTEIN URINE TRACE (NEGATIVE); SPECIFIC GRAVITY URINE 1.022 (1.005-1.030)
[2024-04-08 14:51] LABS: BASOPHILS % 0.9 % (0.0-2.0); EOSINOPHILS % 5.3 % (0.0-5.0); HEMATOCRIT. 37.8 % (42.0-52.0); HEMOGLOBIN. 12.3 g/dL (14.0-18.0); LYMPHOCYTES % 26.8 % (20.0-50.0); MEAN CORPUSCULAR HEMOGLOBIN 30.6 pg (28.0-32.0); MEAN CORPUSCULAR HGB CONC 32.5 g/dL (31.0-37.0); MEAN PLATELET VOLUME 7.7 fl (7.4-10.4); MONOCYTES % 6.8 % (2.0-8.0); NEUTROPHILS % 60.2 % (40.0-76.0); PLATELET 272 x1000/uL (130-400); RED BLOOD CELL COUNT 4.02 mill/uL (4.7-6.1); RED CELL DISTRIBUTION WIDTH 13.5 % (11.6-14.6); WHITE BLOOD COUNT 7.6 x1000/uL (4.5-11.0)
[2024-04-08 14:56] LABS: CHLORIDE 102 mEq/L (98-107); POTASSIUM 3.9 mEq/L (3.5-5.1); SODIUM 138 mEq/L (136-145)
[2024-04-08 14:56] LABS: BACTERIA URINE RARE; RBC URINE NONE SEEN /hpf (0-2); SQUAMOUS EPITHELIAL CELL URINE RARE /lpf (RARE/1+); WBC URINE 0-2 /hpf (0-2); YEAST URINE NONE SEEN
[2024-04-08 14:57] LABS: CALCIUM 9.6 mg/dL (8.7-10.4); CARBON DIOXIDE 30 mEq/L (21-32)
[2024-04-08 15:02] LABS: GLUCOSE 87 mg/dL (70-105); UREA NITROGEN BLOOD 9 mg/dL (9-23)
[2024-04-08 15:04] LABS: ALANINE AMINOTRANSFERASE 10 IU/L (10-49); ALBUMIN 4.4 g/dL (3.2-4.8); ASPARTATE AMINOTRANSFERASE 19 IU/L (<34); BILIRUBIN DIRECT 0.2 mg/dL (<=3.0); BILIRUBIN TOTAL 0.7 mg/dL (0.1-1.0)
[2024-04-08 15:05] LABS: PROTEIN TOTAL 7.7 g/dL (6.0-8.3)
[2024-04-08] MEDS: ONDANSETRON 4MG ODT PO ONE (15:46)
[2024-04-08] MEDS: FAMOTIDINE 20MG TABLET PO ONE (15:46)
[2024-04-08] MEDS: MAGNESIUM/ALUMINUM HYDROXIDE/SIMETHICONE 30ML UDC PO ONE (15:46)
[2024-04-08 15:48] LABS: *AMPHETAMINES SCREEN URINE NEGATIVE (NEGATIVE); *BARBITURATES SCREEN URINE NEGATIVE (NEGATIVE); *BENZODIAZEPINES SCREEN URINE NEGATIVE (NEGATIVE); *COCAINE SCREEN URINE NEGATIVE (NEGATIVE); CANNABINOID URINE SCREEN PRESUMPTIVE POSITIVE (NEGATIVE); ECSTASY MDMA SCREEN URINE NEGATIVE (NEGATIVE); METHADONE URINE SCREEN NEGATIVE (NEGATIVE); OPIATES URINE SCREEN NEGATIVE (NEGATIVE); PHENCYCLIDINE URINE SCREEN NEGATIVE (NEGATIVE)
[2024-04-08] MEDS: MORPHINE SULFATE 4 MG/ML INJ (FOR IV/IM USE) IV ONE (16:23)
[2024-04-08] MEDS ORDERED: ONDA4TAB50 MT (19:07)
[2024-04-08] MEDS ORDERED: PANT20TA17 MT (19:07)
[2024-04-08 19:22] VITALS: BP 144/88; PULSE 82; RESP 17; TEMP 37; O2SAT 100
== END 2024-04-08 19:26 | disposition home or self-care (01) ==
LOC: ER 13:44
DX: R10.9 Unspecified abdominal pain (principal); I48.91 Unspecified atrial fibrillation; F17.200 Nicotine dependence, unspecified, uncomplicated; F12.90 Cannabis use, unspecified, uncomplicated; F10.90 Alcohol use, unspecified, uncomplicated; Z88.0 Allergy status to penicillin; Z79.899 Other long term (current) drug therapy; Y90.9 Presence of alcohol in blood, level not specified
CPT/HCPCS: 80076; 80305; 80048; 81003; 80320; 82270; 83690; 85025; 36415; 74176; 96374; 99285; Q0162; J2270; G0480

== ENCOUNTER 2024-12-19 11:48 | Emergency (ER) | payer MEDICAID ==
[~2024-12-19] VITALS: Ht 172.7 cm; Wt 86.0 kg
[~2024-12-19 11:48] MED LIST changes: +ONDA4TAB50 MT; +PANT20TA17 MT
[2024-12-19 12:23] VITALS: O2SAT 99
[2024-12-19 12:59] LABS: BASOPHILS % 1.5 % (0.0-2.0); EOSINOPHILS % 7.2 % (0.0-5.0); HEMATOCRIT. 39.6 % (42.0-52.0); HEMOGLOBIN. 13.1 g/dL (14.0-18.0); LYMPHOCYTES % 21.9 % (20.0-50.0); MEAN PLATELET VOLUME 7.6 fl (7.4-10.4); MONOCYTES % 12.8 % (2.0-8.0); NEUTROPHILS % 56.6 % (40.0-76.0); PLATELET 227 x1000/uL (130-400); RED BLOOD CELL COUNT 4.18 mill/uL (4.7-6.1); RED CELL DISTRIBUTION WIDTH 13.6 % (11.6-14.6)
[2024-12-19] MEDS: ONDANSETRON 4MG ODT PO ONE (13:13)
[2024-12-19] MEDS: MAGNESIUM/ALUMINUM HYDROXIDE/SIMETHICONE 30ML UDC PO ONE (13:13)
[2024-12-19 13:17] LABS: CREATININE 1.1 mg/dL (0.6-1.3)
[2024-12-19 13:19] LABS: ASPARTATE AMINOTRANSFERASE 29 IU/L (<34); UREA NITROGEN BLOOD 7 mg/dL (9-23)
[2024-12-19 13:20] LABS: PROTEIN TOTAL 7.3 g/dL (6.0-8.3)
[2024-12-19 13:21] LABS: BILIRUBIN DIRECT 0.2 mg/dL (<=3.0); BILIRUBIN TOTAL 0.7 mg/dL (0.1-1.0)
[2024-12-19 14:00] VITALS: BP 131/90; PULSE 82; RESP 18; TEMP 36.8; O2SAT 98
[2024-12-19 14:00] LABS: CLARITY URINE CLEAR (CLEAR); COLOR URINE DARK YELLOW (YELLOW); GLUCOSE URINE NEGATIVE (NEGATIVE); KETONES URINE 2+ (NEGATIVE); LEUKOCYTE ESTERASE URINE NEGATIVE (NEGATIVE); NITRITE URINE NEGATIVE (NEGATIVE); OCCULT BLOOD URINE NEGATIVE (NEGATIVE); PH URINE 7.0 (4.5-8.0); PROTEIN URINE TRACE (NEGATIVE); SPECIFIC GRAVITY URINE 1.021 (1.005-1.030); UROBILINOGEN URINE 1.0 E.U./dL (0.2-1.0)
[2024-12-19] MEDS ORDERED: SODIUM CHLORIDE 0.9% 1,000 ML IV ONE (15:00)
[2024-12-19 15:01] LABS: MUCUS URINE 3+ /lpf (NONE/TRACE); SQUAMOUS EPITHELIAL CELL URINE FEW /lpf (RARE/1+)
[2024-12-19 15:02] LABS: RBC URINE NONE SEEN /hpf (0-2); WBC URINE 0-2 /hpf (0-2)
[2024-12-19 15:03] LABS: BACTERIA URINE NONE SEEN
== END 2024-12-19 15:12 | disposition left against medical advice (07) ==
LOC: ER 11:48
DX: R10.84 Generalized abdominal pain (principal)
CPT/HCPCS: 99281; 80076; 80048; 81003; 83690; 85025; 36415; 93005; Q0162; 99284